=== PATIENT | female | born 1940 | race Caucasian/White ===

== ENCOUNTER → 2019-05-05 | Outpatient (CLI) | payer MEDICARE ==
[~2019-05-05] MED LIST: ADVA1AER2; COUM1TAB18; DARV100T
--- NOTE | 2019-05-06 06:50 | REP ---
TRIPLE PHASE BONE SCAN OF HIPS: Following the intravenous administration of 22 mCi of technetium 99m MDP, the patient's hips are imaged in the flow phase in the anterior and posterior projections showing symmetrical blood flow. Immediate blood pool and two hour delayed images are performed in multiple projections. Photopenic prostheses are noted in the proximal femurs bilaterally. There is increased blood pooling and delayed uptake in the proximal left femur along the interface between the prosthesis and bone. This is seen diffusely both medially and laterally along the stem of the prosthesis. Superior extent is at the intertrochanteric region. This is suspicious for loosening. Electronically Signed by Nikhil Poe MD 05/08/2019 04:15 P
== END ==
LOC: M RAD 10:56
PROVIDERS: ATTEND Orthopaedic Surgery
DX: S70.02XD Contusion of left hip, subsequent encounter (principal); W18.30XD Fall on same level, unspecified, subsequent encounter; Y92.009 Unspecified place in unspecified non-institutional (private) residence as the place of occurrence of the external cause
CPT/HCPCS: 78315; A9503

== ENCOUNTER → 2019-06-26 | Outpatient (CLI) | payer MEDICARE ==
[~2019-06-26] MED LIST changes: +AMOX500C PO; +FURO20TA2 PO; +LISI-1046 PO; +METF500T13 PO; +PRESCAP PO; +TRAM50TA2 PO
[2019-06-26 12:22] LABS: HEMATOCRIT 41.2 % (36.0-47.0); HEMOGLOBIN 12.8 g/dl (12.0-15.5); MEAN CORPUSCULAR HEMOGLOBIN 26.2 pg (27.0-33.0); MEAN CORPUSCULAR HGB CONC 31.1 g/dl (32.0-36.5); MEAN CORPUSCULAR VOLUME 84.4 fl (80.0-96.0); PLATELET COUNT, AUTOMATED 216 10^3/uL (150-450); RED BLOOD COUNT 4.88 10^6/uL (4.00-5.40); WHITE BLOOD COUNT 11.7 10^3/uL (4.0-10.0)
[2019-06-26 12:38] LABS: INR 1.22; PROTHROMBIN TIME 15.1 SECONDS (11.8-14.0)
[2019-06-26 12:45] LABS: ALBUMIN 3.9 GM/DL (3.2-5.2); ALT/SGPT 15 U/L (12-78); BILIRUBIN,TOTAL 0.6 MG/DL (0.2-1.0); BLOOD UREA NITROGEN 12 MG/DL (7-18); CALCIUM LEVEL 9.6 MG/DL (8.8-10.2); CARBON DIOXIDE LEVEL 31 MEQ/L (21-32); CHLORIDE LEVEL 105 MEQ/L (98-107); GLOMERULAR FILTRATION RATE > 60.0 (>32); GLUCOSE, FASTING 89 MG/DL (70-100); POTASSIUM SERUM 4.2 MEQ/L (3.5-5.1); SODIUM LEVEL 143 MEQ/L (136-145); TOTAL PROTEIN 6.7 GM/DL (6.4-8.2)
[2019-06-26 13:11] LABS: ERYTHROCYTE SEDIMENTATION RATE 16 mm/hr (0-30)
--- NOTE | 2019-06-26 20:55 | ECGEPIP ---
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
--- NOTE | 2019-06-27 02:31 | REP ---
Clinical: Preoperative assessment. Technique: PA and lateral. Comparison: 04/09/2008. Findings: Mediastinum and cardiac silhouette are within normal limits. Lung mcelroy demonstrate chronic stable changes including calcified granulomata. No focal consolidation, effusion, or pneumothorax. Skeletal structures demonstrate age-related osteopenia and degenerative changes. Impression: Chronic stable changes. No acute cardiopulmonary process. Electronically Signed by Jean Carlos Brito MD 06/27/2019 02:23 A
== END ==
LOC: M LAB 11:03
PROVIDERS: ATTEND Orthopaedic Surgery
DX: M25.552 Pain in left hip (principal); Z79.01 Long term (current) use of anticoagulants

== ENCOUNTER 2019-07-02 19:15 | Inpatient (IN) | payer MEDICARE ==
[~2019-07-02] VITALS: Ht 167.6 cm; Wt 74.3 kg
--- NOTE | 2019-07-02 20:07 | REPVR ---
PROCEDURE INFORMATION: Exam: CT Head Without Contrast Exam date and time: 07/02/2019 7:29 PM Age: 79 years old Clinical indication: Syncope and collapse TECHNIQUE: Imaging protocol: Computed tomography of the head without contrast. Axial and coronal reformatted images were created and reviewed. Radiation optimization: All CT scans at this facility use at least one of these dose optimization techniques: automated exposure control; mA and/or kV adjustment per patient size (includes targeted exams where dose is matched to clinical indication); or iterative reconstruction. COMPARISON: No relevant prior studies available. FINDINGS: Brain: Patchy areas of hypoattenuation in the periventricular and subcortical white matter, consistent with chronic small vessel ischemic disease. No CT evidence of acute intracranial hemorrhage or acute territorial infarction. No significant mass effect or midline shift. Basal cisterns patent. Ventricles: Prominence of the cortical sulci, cisterns and ventricular system, consistent with cerebral and cerebellar volume loss. Bones/joints: No acute osseous abnormality. Sinuses: Minimal ethmoid mucosal thickening. Mastoid air cells: Partial opacification of the left mastoid air cells. Soft tissues: Grossly unremarkable. Vasculature: Calcific atherosclerotic disease in the cavernous internal carotid arteries. IMPRESSION: 1. No CT evidence of acute intracranial pathology. 2. Additional findings, as above. Electronically signed by: Omid Castano On 07/02/2019 20:07:03 PM
--- NOTE | 2019-07-02 20:13 | REPVR ---
PROCEDURE INFORMATION: Exam: CT Cervical Spine Without Contrast Exam date and time: 07/02/2019 7:29 PM Age: 79 years old Clinical indication: Other: Syncope TECHNIQUE: Imaging protocol: Computed tomography images of the cervical spine without contrast. Axial, coronal and sagittal reformatted images were created and reviewed. Radiation optimization: All CT scans at this facility use at least one of these dose optimization techniques: automated exposure control; mA and/or kV adjustment per patient size (includes targeted exams where dose is matched to clinical indication); or iterative reconstruction. COMPARISON: No relevant prior studies available. FINDINGS: Vertebrae: Osteopenia. Mild straightening of the normal cervical lordosis. Mild retrolisthesis of C4 on C5 and anterolisthesis of C7 on T1. Alignment otherwise anatomic. Congenital nonunion of the C1 posterior arch. No CT evidence of acute fracture, dislocation or subluxation. Vertebral body heights maintained. Discs/Spinal canal/Neural foramina: Multilevel degenerative changes, characterized by disc space narrowing, osteophytosis and uncovertebral and facet joint hypertrophy. Multilevel spinal canal and neural foraminal narrowing. Thyroid gland: 2.8 x 1.5 cm heterogeneous retrosternal nodule. Soft tissues: Grossly unremarkable. Lungs: Emphysema. IMPRESSION: 1. No CT evidence of acute cervical spine traumatic injury. 2. 2.8 x 1.5 cm heterogeneous retrosternal nodule. If clinically indicated, thyroid ultrasound may be obtained for further evaluation. 3. Additional findings, as above. Electronically signed by: Omid Castano On 07/02/2019 20:13:22 PM
[2019-07-02] MEDS ORDERED: METOCLOPRAMIDE INJ 10MG/2ML VIAL (J2765) IV ONE (20:30)
[2019-07-02] MEDS ORDERED: MORPHINE 2 MG/ML 1ML VIAL (J2270) IV ONE (20:30)
[2019-07-02 20:34] LABS: BASO # 0.1 10^3/uL (0.0-0.2); BASO % 0.4 % (0.0-1.0); EOS # 0.2 10^3/uL (0.0-0.5); EOS % 1.8 % (0.0-3.0); HEMATOCRIT 42.5 % (36.0-47.0); HEMOGLOBIN 12.8 g/dl (12.0-15.5); LYMPH # 2.2 10^3/uL (1.5-5.0); LYMPH % 16.6 % (24.0-44.0); MEAN CORPUSCULAR HEMOGLOBIN 25.8 pg (27.0-33.0); MEAN CORPUSCULAR HGB CONC 30.1 g/dl (32.0-36.5); MEAN CORPUSCULAR VOLUME 85.5 fl (80.0-96.0); MONO # 0.9 10^3/uL (0.0-0.8); MONO % 6.9 % (0.0-5.0); NEUTROPHILS # 9.6 10^3/uL (1.5-8.5); NEUTROPHILS % 73.8 % (36.0-66.0); PLATELET COUNT, AUTOMATED 243 10^3/uL (150-450); RED BLOOD COUNT 4.97 10^6/uL (4.00-5.40)
[2019-07-02 20:44] LABS: INR 1.19; PROTHROMBIN TIME 14.8 SECONDS (11.8-14.0)
[2019-07-02] MEDS ORDERED: LIDOCAINE 5% (LIDODERM) PATCH TD SCH (21:00)
[2019-07-02] MEDS ORDERED: HumaLOG INSULIN (NovoLOG) PER UNIT SC SCH (21:00)
[2019-07-02 21:05] LABS: BLOOD UREA NITROGEN 10 MG/DL (7-18); CALCIUM LEVEL 8.9 MG/DL (8.8-10.2); CARBON DIOXIDE LEVEL 29 MEQ/L (21-32); CHLORIDE LEVEL 109 MEQ/L (98-107); CK-MB VALUE MASS < 1.0 NG/ML (<3.6); CPK CREATINE PHOSPHOKINASE 33 U/L (26-192); CREATININE FOR GFR 0.54 MG/DL (0.55-1.30); GLOMERULAR FILTRATION RATE > 60.0 (>32); GLUCOSE, FASTING 107 MG/DL (70-100); MB/CK RELATIVE INDEX 3.03 (< OR =4); POTASSIUM SERUM 4.2 MEQ/L (3.5-5.1); SODIUM LEVEL 143 MEQ/L (136-145); TROPONIN I < 0.02 NG/ML (< 0.10)
[2019-07-02] MEDS ORDERED: NS 1,000 ML IV SCH (21:54)
[2019-07-02] MEDS ORDERED: MOM 30ML SUSPENSION UDC PO PRN (22:00)
[2019-07-02] MEDS ORDERED: MAALOX 30 ML SUSP *UDC PO PRN (22:00)
[2019-07-02] MEDS ORDERED: DICL1GEL3 TOP (22:29)
--- NOTE | 2019-07-02 22:32 | HPEPDOC ---
[facility] Medical History & Physical Date of Admission Jul 02, 2019 Date of Service: Jul 02, 2019 Primary Care Physician: A Other Provider Asim Macias Attending Physician: MINERVA PEARCE MD History and Physical TIME OF SERVICE: 10 PM CHIEF COMPLAINT: Loss of consciousness HISTORY OF PRESENT ILLNESS: This is an 79 yr old F who presents for evaluation after fall and losing consciousness while walking down a ramp her building at around 5 PM. At her baseline she uses a cane or walker. While walking down the ramp, she had her cane and was holding onto the handrail. She denies having chest pain, shortness of breath, palpitations, or dizziness prior to the fall. She also denies having nausea, vomiting, fevers or chills or missing lunch. She doesn't remember specific events surrounding the fall. It is unclear if the event was witnessed. She has been having chronic left hip pain since and is scheduled for elective left hip revision on July 12. REVIEW OF SYSTEMS: 12 point review of systems negative except as listed in HPI PAST MEDICAL/ SURGICAL HISTORY: COPD PVD NIDDM Psoriasis Osteopenia Sleep Apnea Chronic small vessel ischemic disease Status post left total hip replacement to manage advanced OA. Status post total abdominal hysterectomy She denies having a heart attack in the past SOCIAL HISTORY: Former smoker She lives on her own FAMILY HISTORY: Prostate CA DM Lung CA ALLERGIES: Please see below. HOME MEDICATIONS: Please see below. PHYSICAL EXAMINATION: VITAL SIGNS: Please see below. GEN: well-nourished / well developed/ NAD INTEGUMENT: not flushed/ not jaundice / she has a well-healed post surgical scar on her knee HEENT: NCAT / mucus membranes moist and pink / nasal cannula in place CVS: RRR/NMRG/ the whole left lower leg is swollen when compared to the right LUNGS: lungs are clear to auscultation bilaterally on room air ABDOMEN: Contour (flat) / soft & not tender with palpation MSK/EXTREMITIES: range of motion intact in all upper extremities and right lower extremity, range of motion limited in left hip by pain/negative JEANNIE sign at the right hip, unable to complete JEANNIE test at the left hip because of pain NEURO: CN 2-12 are grossly intact / speech is not dysarthric PSYCH: alert and oriented to person place and time/ able to understand and follow all commands LABORATORY DATA: See below. IMAGING: CT head " IMPRESSION: 1. No CT evidence of acute intracranial pathology. 2. Additional findings, as above. " CT cervical spine " IMPRESSION: 1. No CT evidence of acute cervical spine traumatic injury. 2. 2.8 x 1.5 cm heterogeneous retrosternal nodule. If clinically indicated, thyroid ultrasound may be obtained for further evaluation. 3. Additional findings, as above." ASSESSMENT: Ms. Valadez is a 79-year-old female the past medical history of COPD, NIDDM, PVD, psoriasis, osteopenia, chronic small vessel ischemic disease and sleep apnea who is admitted for evaluation of syncopal fall. PLAN: 1. Syncope The cause is unclear at this time. [place]aney Syncope Risk Score to determine 30 day risk of serious adverse events in patients w syncope = 2 points = medium risk = additional investigation for cardiac and non-cardiac causes is appropriate The CT of the head, EKG, troponin were unremarkable Plan: bed to medical floor/Telemetry / f/u orthostats ( lying flat and sitting up) / f/u VBG to r/o hypercarbia 2. Left Hip pain and swelling Likely due to OA. I'm unable to complete the JEANNIE test on the left hip because of pain She has elective hip repair scheduled on July 12. Plan: follow-up x-ray of left hip prior to deciding if she needs a CT scan / bec ause the whole left leg is a lot more swollen than the right will f/u ultrasound to rule out DVT / continue with tramadol for pain, add lidocaine patch & voltaren gel (for discharge) 3. Uncontrolled HTN Plan: resume lasix and lisinopril 4. Leukocytosis Likely reactive due to fall Plan: monitor vitals / will not order UA bc she is not c/o abdominal pain 5. Thyroid Nodule Plan: thyroid ultrasound can be done on an outpatient basis 6. COPD Stable Plan: supplemental O2, albuterol PRN 7. NIDDM Plan: diabetic diet / f/u accuchecks & A1C / hypoglycemia protocol / sliding scale insulin / hold oral anti-glycemics 8. Sleep Apnea - Plan: own CPAP DVT PROPHYLAXIS: SCDs pending ruling out fracture DISPOSITION: She will need at least 2 midnight's stay Vital Signs Vital Signs Date Time Temp Pulse Resp B/P (MAP) Pulse Ox O2 Delivery O2 Flow Rate FiO2 07/02/19 22:00 98.2 67 18 144/67 (92) 99 Nasal Cannula 2.0 Laboratory Data Labs 24H Laboratory Tests 2 07/02/19 20:21: Bedside Glucose (Misc Panel) 108 07/02/19 20:25: Immature Granulocyte % (Auto) 0.5, Neutrophils (%) (Auto) 73.8H, Lymphocytes (%) (Auto) 16.6L, Monocytes (%) (Auto) 6.9H, Eosinophils (%) (Auto) 1.8, Basophils (%) (Auto) 0.4, Neutrophils # (Auto) 9.6H, Lymphocytes # (Auto) 2.2, Monocytes # (Auto) 0.9H, Eosinophils # (Auto) 0.2, Basophils # (Auto) 0.1, Nucleated Red Blood Cells % (auto) 0.0, Prothrombin Time 14.8H, Prothromb Time International Ratio 1.19, Anion Gap 5L, Glomerular Filtration Rate > 60.0, Calcium Level 8.9, Total Creatine Kinase 33, Creatine Kinase MB < 1.0, Creatine Kinase MB Relative Index 3.03, Troponin I < 0.02, Thyroid Stimulating Hormone (TSH) 1.380 CBC/BMP Laboratory Tests 07/02/19 20:25 Home Medications Scheduled Furosemide (Furosemide) 20 Mg Tablet, 20 MG PO DAILY Lisinopril (Lisinopril) 2.5 Mg Tablet, 2.5 MG PO DAILY Metformin HCl (Metformin HCl) 500 Mg Tablet, 500 MG PO BID Vit A/Vit C/Vit E/Zinc/Copper (Preservision Areds Softgel) 1 Each Capsule, 1 CAP PO BID Scheduled PRN Diclofenac Sodium (Diclofenac Sodium) 1% 100GM Gel..gram., 4 GM TOP QID PRN for hip pain Apply to area of pain Tramadol HCl (Tramadol HCl) 50 Mg Tablet, 50 MG PO Q6-8HP PRN for PAIN Allergies Coded Allergies: Aminoglycosides (Verified Allergy, Intermediate, 06/27/19) bacitracin (Verified Allergy, Intermediate, 06/27/19) latex (Verified Allergy, Intermediate, ITCH, 06/27/19) neomycin (Verified Allergy, Unknown, 06/27/19) polymyxin B (Verified Allergy, Unknown, 06/27/19) A-FIB/CHADSVASC A-FIB History Current/History of A-Fib/PAF?: No Current PO Anticoag Therapy: No MINERVA PEARCE MD Jul 02, 2019 22:32
[2019-07-02] MEDS ORDERED: GLUCOSE 4 GM CHEW TABLET PO PRN (22:45)
[2019-07-02] MEDS ORDERED: DEXTROSE 50% 50 ML SYRINGE IV PRN (22:45)
[2019-07-02] MEDS ORDERED: GLUCAGON FOR INJ 1 MG VIAL (J1610) SC PRN (22:45)
[2019-07-02 23:14] LABS: HEMOGLOBIN A1c 6.3 %
[2019-07-02 23:14] LABS: VENOUS BASE EXCESS 2.2 (-2.0-2.0); VENOUS HCO3 28.5 MEQ/L (23.0-27.0); VENOUS O2 SATURATION 93.8 % (60.0-80.0); VENOUS PARTIAL PRESSURE O2 72.2 mmHg (30.0-50.0); VENOUS PH 7.357 UNITS (7.330-7.430); VENOUS STANDARD HCO3 26.3 MEQ/L; VENOUS TOTAL CO2 30.1 MEQ/L (24.0-28.0)
[2019-07-02 23:23] VITALS: BP 138/80
--- NOTE | 2019-07-02 23:37 | REPVR ---
PROCEDURE INFORMATION: Exam: US Duplex Left Lower Extremity Veins, Limited Exam date and time: 07/02/2019 11:17 PM Age: 79 years old Clinical indication: Edema, localized; Lower extremity, left; Additional info: Left leg swelling TECHNIQUE: Imaging protocol: Real-time Duplex ultrasound of the Left Lower Extremity with 2-D duran scale, color Doppler flow and spectral waveform analysis with image documentation. Limited exam focused on the left lower extremity veins. COMPARISON: No relevant prior studies available. FINDINGS: Left deep veins: Unremarkable. The common femoral, femoral and popliteal veins are patent without thrombus. Normal compressibility, augmentation response and Doppler waveforms. Left superficial veins: Unremarkable. Saphenofemoral junction is patent without thrombus. Soft tissues: Unremarkable. IMPRESSION: No sonographic evidence of deep vein thrombosis. Electronically signed by: Omid Castano On 07/02/2019 23:36:36 PM
[2019-07-03] MEDS: ACETAMINOPHEN TAB 650MG DOSE (2X325MG) PO PRN ×2 (05:02→09:07)
[2019-07-03 06:00] VITALS: BP 138/72
[2019-07-03] MEDS ORDERED: ENOXAPARIN 40 MG/0.4 ML SYRINGE (J1650) SC SCH (06:00)
--- NOTE | 2019-07-03 06:39 | ECGEPIP ---
[facility] - ED Test Date: 2019-07-02 Pat Name: GILBERTO KIRKLAND Department: Room: - Gender: Female Training Officer: LILLIANA : 1940 Requested By: DANYELLE VALADEZ Order Number: [id number] Reading MD: Deloris Johnson Measurements Intervals [place] Rate: 80 P: 68 CO: 155 QRS: 49 QRSD: 87 T: 65 QT: 355 QTc: 410 Interpretive Statements SINUS RHYTHM LOW QRS VOLTAGE LIMB LEADS NONSPECIFIC ST T WAVE CHANGES CW 06/26/19 RATE INCREASED Electronically Signed on 07-03-2019 6:39:28 EST by Deloris Johnson
[2019-07-03] MEDS ORDERED: HumaLOG INSULIN (NovoLOG) PER UNIT SC SCH (07:30)
--- NOTE | 2019-07-03 08:00 | REP ---
Clinical: Trauma. Fall. Technique: AP and cross-table lateral views of the left femur. Findings: The patient is noted to be status post left hip replacement. A fracture line is identified through the proximal femoral metadiaphysis which likely represents old injury although superimposed acute fracture cannot be excluded. No further acute fracture or injury identified. Impression: Presumed old fracture through the proximal femoral metadiaphysis related to prior trauma and left hip replacement. Clinical correlation is recommended. Electronically Signed by Jean Carlos Brito MD 07/03/2019 07:52 A
--- NOTE | 2019-07-03 08:02 | REP ---
Clinical: Trauma. Fall. Technique: Frontal view of the pelvis with neutral and cross-table lateral views of the left hip. Findings: Evidence for bilateral hip replacement. Underlying age-related osteopenia and degenerative changes are appreciated. There is a subtle fracture line through the residual proximal femoral metadiaphysis with surrounding periosteal reaction suggesting old injury. However, superimposed acute fracture cannot definitively be excluded. The femoral portion of the hip prosthesis rods through the fracture line and appears intact. Impression: Age-related degenerative changes and osteopenia. Changes related to the left proximal femur likely represent old injury and less likely superimposed acute fracture cannot be excluded. Electronically Signed by Jean Carlos Brito MD 07/03/2019 07:53 A
--- NOTE | 2019-07-03 08:05 | REP ---
Clinical: Fall . Comparison: 06/26/2019 . Technique: PA and lateral. Findings: The mediastinum and cardiac silhouette are normal. The lung mcelroy demonstrate chronic interstitial changes without acute consolidation, effusion, or pneumothorax. Stable calcified granuloma in the left lower lung zone again noted. The skeletal structures are intact and normal. Impression: 1. No acute cardiopulmonary process. Electronically Signed by Jean Carlos Brito MD 07/03/2019 07:56 A
--- NOTE | 2019-07-03 08:15 | REP ---
Clinical: Trauma. Technique: AP, lateral, bilateral oblique views of the left ankle. Findings: Moderate diffuse soft tissue swelling along with age-related arthritic degenerative changes. A very subtle nondisplaced fracture of the distal fibular metaphysis cannot be excluded and identified on single oblique view. Impression: Soft tissue swelling and degenerative changes. Possible subtle nondisplaced fracture through the distal fibular metaphysis. Electronically Signed by Jean Carlos Brito MD 07/03/2019 08:07 A
--- NOTE | 2019-07-03 08:16 | REP ---
Clinical: Trauma. Technique: AP, lateral, bilateral oblique views of the left knee. Findings: Age-related tricompartmental arthritic changes are appreciated. No acute fracture or dislocation. No effusion. Impression: No acute fracture or dislocation. Electronically Signed by Jean Carlos Brito MD 07/03/2019 08:08 A
[2019-07-03 08:46] LABS: HEMATOCRIT 41.4 % (36.0-47.0); HEMOGLOBIN 12.6 g/dl (12.0-15.5); MEAN CORPUSCULAR HEMOGLOBIN 26.2 pg (27.0-33.0); MEAN CORPUSCULAR HGB CONC 30.4 g/dl (32.0-36.5); MEAN CORPUSCULAR VOLUME 86.1 fl (80.0-96.0); PLATELET COUNT, AUTOMATED 194 10^3/uL (150-450); RED BLOOD COUNT 4.81 10^6/uL (4.00-5.40); WHITE BLOOD COUNT 9.4 10^3/uL (4.0-10.0)
[2019-07-03 09:00] LABS: BLOOD UREA NITROGEN 8 MG/DL (7-18); CALCIUM LEVEL 9.2 MG/DL (8.8-10.2); CARBON DIOXIDE LEVEL 29 MEQ/L (21-32); CHLORIDE LEVEL 109 MEQ/L (98-107); CREATININE FOR GFR 0.52 MG/DL (0.55-1.30); GLOMERULAR FILTRATION RATE > 60.0 (>32); GLUCOSE, FASTING 93 MG/DL (70-100); POTASSIUM SERUM 4.2 MEQ/L (3.5-5.1); SODIUM LEVEL 143 MEQ/L (136-145)
[2019-07-03] MEDS ORDERED: DOCUSATE SODIUM 100 MG CAP PO SCH (09:00)
[2019-07-03] MEDS ORDERED: **NOTE PATIENT COMMENT** MISC XX SCH (09:00)
--- NOTE | 2019-07-03 09:07 | IPN ---
DATE: 07/03/2019 ADMISSION DATE: 07/02/2019 PRINCIPAL DIAGNOSIS: Syncope versus fall. HISTORY: Sindy Menendez was admitted yesterday when it was felt that she had lost consciousness while walking on a ramp into her building. She thinks her hip gave out. She has left hip replacement planned with [facility] Juan [facility], and she says "this happens all the time." Past medical history is reviewed from the history and physical. PHYSICAL EXAMINATION: Vital signs as listed, 138/78, pulse of 70. HEENT unremarkable. Lungs clear. Heart regular rhythm, 1/6 systolic ejection murmur. Abdomen soft, nontender, no masses. No peripheral edema. Labs are all pending today. IMPRESSION: 1. Fall. I do not think she actually had syncope. She says her hip gave out on her. I am waiting for lab work and will check her telemetry. She would like to go home today. I need to see her labs before we make that decision.
--- NOTE | 2019-07-19 13:05 | DSES ---
DATE OF ADMISSION: 07/02/2019 DATE OF DISCHARGE: 07/03/2019 PRINCIPAL DIAGNOSIS: Fall. HISTORY: Sindy Menendez slipped, fell, and went to the emergency room. There was thought she might have syncope, but she says that she slipped, and her hip gave out on her. She was planning to have left hip replacement, and she said this was a frequent occurrence for her. HOSPITAL COURSE: She was put on telemetry. She had no arrhythmia. She had laboratory work done, and there was nothing significant found. I only rounded her on the day of discharge. She insisted on going home. Said she was not quite clear why she was in the hospital, as she had slipped. Her imaging workup was all unremarkable. The patient was discharged home on 07/03/2019. Activity and diet as tolerated. Medicines were unchanged from admission: Furosemide 20 mg daily, lisinopril 2.5 mg daily, metformin 500 mg twice a day, tramadol 50 mg every 6-8 hours as needed, multivitamin, and she used Voltaren 1% Gel 4 grams four times a day as needed for hip pain while she was waiting for her surgery that took place the following week.
== END 2019-07-03 13:00 | disposition home or self-care (01) | DRG 93 ==
LOC: EDBD 19:15 → M ED 19:15 → M ED INP 21:54 → ENRESERV 22:56 → M MSPAV 23:35
PROVIDERS: ADMIT Internal Medicine; ATTEND Family Medicine
DX: R29.6 Repeated falls (principal); J44.9 Chronic obstructive pulmonary disease, unspecified; E11.51 Type 2 diabetes mellitus with diabetic peripheral angiopathy without gangrene; M25.552 Pain in left hip; L40.9 Psoriasis, unspecified; M85.80 Other specified disorders of bone density and structure, unspecified site; G47.30 Sleep apnea, unspecified; Z96.642 Presence of left artificial hip joint; Z87.891 Personal history of nicotine dependence; I10 Essential (primary) hypertension; D72.829 Elevated white blood cell count, unspecified; E04.1 Nontoxic single thyroid nodule; Z79.84 Long term (current) use of oral hypoglycemic drugs; Z79.899 Other long term (current) drug therapy; Z88.1 Allergy status to other antibiotic agents; Z88.8 Allergy status to other drugs, medicaments and biological substances; Z91.040 Latex allergy status

== ENCOUNTER 2019-07-12 05:32 | Inpatient (IN) | payer MEDICARE ==
--- NOTE | 2019-07-05 15:05 | HPE ---
DATE OF ADMISSION: 07/12/2019 CHIEF COMPLAINT: Left hip arthritis. HISTORY OF PRESENT ILLNESS: Sindy a pleasant 79-year-old female with progressively worsening prior left total hip arthroplasty. She has failed to improve with conservative treatment. She elected for surgery for her continued symptoms. She has pain with weightbearing activities and her activities of daily living. X-rays of her hip are notable for advanced polyethylene wear of the left hip prosthesis. She has consented for a left total hip arthroplasty revision by Dr. Juan Solano. Medical optimization was performed by Dr. Macias. ALLERGIES: NEOSPORIN and LATEX. CURRENT MEDICATIONS: - gemfibrozil 600 mg a day - furosemide 20 mg a day - metformin HCl 500 mg once a day - lisinopril 2.5 mg once a day - PreserVision once a day - tramadol 50 mg every 6 hours as needed PAST MEDICAL HISTORY: Diabetes, hypertension, hyperlipidemia, macular degeneration and depression. PAST SURGICAL HISTORY: Includes bilateral total hip arthroplasties and a hysterectomy. SOCIAL HISTORY: She is retired. She quit smoking 20 years ago and does not drink alcohol. FAMILY HISTORY: Noncontributory. REVIEW OF SYSTEMS: This patient denies chest pain, heart palpitations, cough, wheezing, difficulty breathing and shortness of breath. She denies abdominal pain, nausea, vomiting, diarrhea or constipation. She denies recent upper respiratory infection or urinary tract infection symptoms. She does complain of persistent pain in the left hip and pain with weightbearing activities in her left hip. PHYSICAL EXAMINATION: General: She is well-nourished, well-developed in no acute distress, alert female patient. She ambulates with a moderate limp favoring her left lower extremity. She is using a single-leg cane. Vital signs: She is 64 inches tall, weighs 155 pounds with a temperature of 98.3, pulse of 80, blood pressure 122/78 and respirations of 17. Neck was supple without adenopathy or jugular venous distension. Lungs were clear to auscultation without rales or wheeze. Heart with regular rate and rhythm. Abdomen: Bowel sounds were present. Extremities: Examination of the hip revealed intact skin. The patient had decreased internal and external rotation due to pain and stiffness. The limb is neurovascularly intact. LABORATORY DATA: Chest x-ray showed no acute cardiopulmonary disease processes. EKG showed sinus rhythm at 80 beats per minute. Protime was 15.1, INR 1.22, glucose 89, BUN 12, creatinine 0.60, sodium 143, potassium 4.2. CBC showed a white count of 11.7, MCH of 26.2, mean corpuscular hemoglobin concentration of 31.1, otherwise within normal limits with a sed rate of 16. IMPRESSION: Symptomatic polyethylene wear and a previous left total hip arthroplasty. PLAN: Consented for a left total hip arthroplasty revision by Dr. Juan Solano.
[2019-07-12] VITALS (9 sets, daily range): BP systolic 81–120; BP diastolic 46–94; O2SAT 98
[~2019-07-12] VITALS: Ht 165.1 cm; Wt 73.0 kg
[~2019-07-12 05:32] MED LIST changes: +DICL1GEL3 TOP
[2019-07-12] MEDS ORDERED: ACETAMINOPHEN 500 MG TAB PO ONE (06:00)
[2019-07-12] MEDS ORDERED: LR 1,000 ML IV SCH ×2 (06:00→12:00)
[2019-07-12] MEDS ORDERED: VANCOMYCIN HCL 1,000 MG, VIAL MATE ADAPTER 1 EACH in D5W 250 ML IV ONE (06:00)
[2019-07-12] MEDS ORDERED: ceFAZolin SOD 2 GM in IV 1 EA IV ONE (06:00)
[2019-07-12] MEDS ORDERED: LIDOCAINE 2% INJ 100 MG/5 ML SDV (FOR ANES.) As Ordered ONE (06:05)
[2019-07-12] MEDS ORDERED: BUPIVACAINE HCL 0.5% 30 ML VIAL As Ordered ONE (06:05)
[2019-07-12] MEDS ORDERED: propofoL 200 MG/20 ML VIAL As Ordered ONE ×3 (06:05→10:46)
[2019-07-12] MEDS ORDERED: fentaNYL 100 MCG/2 ML INJECTION (J3010) As Ordered ONE (06:15)
[2019-07-12] MEDS ORDERED: EPINEPHrine INJ 1 MG/ML 1ML VIAL As Ordered ONE (06:50)
[2019-07-12] MEDS ORDERED: ceFAZolin 1GM INJ (J0690 PER 500MG) As Ordered ONE (06:50)
[2019-07-12] MEDS ORDERED: ONDANSETRON 4MG/2ML VIAL (J2405) As Ordered ONE (07:01)
[2019-07-12] MEDS ORDERED: ROCURONIUM BROMIDE 50 MG/5 ML VIAL As Ordered ONE (07:01)
[2019-07-12] MEDS ORDERED: dexameTHASONE 4 MG/ML 1ML VIAL (J1100) As Ordered ONE (07:01)
[2019-07-12] MEDS ORDERED: ePHEDrine SULFATE 25 MG/5 ML(5MG/ML) SYRINGE As Ordered ONE (08:25)
[2019-07-12] MEDS ORDERED: VASOPRESSIN INJ 20 UNITS/ML VIAL As Ordered ONE (09:14)
[2019-07-12] MEDS ORDERED: VANCOMYCIN 1000 MG/20 ML VIAL (J3370) As Ordered ONE (09:17)
[2019-07-12] MEDS: fentaNYL 100 MCG/2 ML INJECTION (J3010) IV PRN ×3 (11:44→12:06)
[2019-07-12] MEDS ORDERED: ONDANSETRON 4MG/2ML VIAL (J2405) IV PRN ×2 (12:00)
[2019-07-12] MEDS ORDERED: MORPHINE 4 MG/ML 1ML VIAL/SYRINGE (J2270) IV PRN (12:00)
[2019-07-12] MEDS ORDERED: MORPHINE 2 MG/ML 1ML VIAL (J2270) IV PRN ×2 (12:00)
--- NOTE | 2019-07-12 12:24 | REP ---
Left femur: Four views portably obtained. History: Status post hip replacement. Findings: Four views of the left femur demonstrate a left hip arthroplasty in position. Lateral skin leon are noted. Periarticular soft tissue swelling and emphysema are seen. There is advanced diffuse osteopenia. There are metallic sutures about the proximal subtrochanteric portion of the femur. Impression: Status post revision arthroplasty left hip. Electronically Signed by Girish Pollack MD 07/12/2019 12:16 P
[2019-07-12] MEDS: LR 1,000 ML IV SCH (13:40)
[2019-07-12] MEDS: ceFAZolin SOD 2 GM in IV 1 EA IV SCH ×2 (13:45→20:17)
--- NOTE | 2019-07-12 17:55 | CR.PDOC ---
General Date of Consultation: Jul 12, 2019 Consultation REASON FOR CONSULTATION/CHIEF COMPLAINT: Status post left hip revision. HISTORY OF PRESENT ILLNESS: 79-year-old female with past medical history of hypertension and diabetes mellitus is admitted status post left hip arthroplasty revision. Procedure was done under spinal anesthesia, patient seen on the floor, tolerating diet, ambulated to the bathroom, reports mild to moderate hip discomfort, otherwise without complaints. She denies any shortness of breath, chest pain, nausea, vomiting, abdominal pain or diarrhea. 10 point review of system is negative except for above ALLERGIES: Please see below. HOME MEDICATIONS: Please see below. PAST MEDICAL HISTORY: 1. Hypertension. 2. . Diabetes mellitus. PAST SURGICAL HISTORY: 1. Total hip arthroplasty 2 2. , Hysterectomy FAMILY HISTORY: Both parents had lung cancer SOCIAL HISTORY: Previous smoker, quit 20 years ago, smoked 2 packs per day for over 20 years PHYSICAL EXAMINATION: VITAL SIGNS: Please see below. GENERAL: No distress HEENT: Normocephalic, atraumatic, moist mucous membranes NECK: Supple CARDIOVASCULAR EXAMINATION: S1, S2, no murmurs RESPIRATORY EXAMINATION: Clear to auscultation, no wheezing ABDOMINAL EXAMINATION: Soft, nontender, nondistended, hypoactive bowel sounds EXTREMITIES: Left lower extremity range of motion limited due to pain SKIN: No rash NEUROLOGICAL EXAMINATION: Alert and oriented 3, no focal deficits PSYCHIATRIC EXAMINATION: Calm and cooperative LABORATORY DATA: Please see below. ASSESSMENT/PLAN: 79-year-old female with past medical history of hypertension and diabetes mellitus is admitted post left hip arthroplasty revision. 1. Left hip arthroplasty revision. Management as per primary team 2. Diabetes mellitus. Sliding scale insulin coverage with meals and at bedtime 3. Hypertension. Continue home lisinopril DVT prophylaxis: Xarelto GI prophylaxis: Not needed Vital Signs/I&O Vital Signs Date Time Temp Pulse Resp B/P (MAP) Pulse Ox O2 Delivery O2 Flow Rate FiO2 07/12/19 17:00 97.8 84 17 101/50 (67) 88 Nasal Cannula 1.0 Laboratory Data Labs 24H Laboratory Tests 2 07/12/19 06:53: Bedside Glucose (Misc Panel) 92 Microbiology Microbiology 07/12/19 Gram Stain - Final, Resulted 07/12/19 Wound Culture, Resulted Pending 07/12/19 Anaerobic Culture, Resulted Pending Allergies Coded Allergies: Aminoglycosides (Verified Allergy, Intermediate, 06/27/19) bacitracin (Verified Allergy, Intermediate, 06/27/19) latex (Verified Allergy, Intermediate, ITCH, 06/27/19) neomycin (Verified Allergy, Unknown, 06/27/19) polymyxin B (Verified Allergy, Unknown, 06/27/19) Home Medications Scheduled Furosemide (Furosemide) 20 Mg Tablet, 20 MG PO DAILY, (Reported) Lisinopril (Lisinopril) 2.5 Mg Tablet, 2.5 MG PO DAILY, (Reported) Metformin HCl (Metformin HCl) 500 Mg Tablet, 500 MG PO BID, (Reported) Vit A/Vit C/Vit E/Zinc/Copper (Preservision Areds Softgel) 1 Each Capsule, 1 CAP PO BID, (Reported) Scheduled PRN Diclofenac Sodium (Diclofenac Sodium) 1% 100GM Gel..gram., 4 GM TOP QID PRN for hip pain for 15 Days, #1 Apply to area of pain Tramadol HCl (Tramadol HCl) 50 Mg Tablet, 50 MG PO Q6-8HP PRN for PAIN, (Report ed) VIKKI GALLEGOS MD Jul 12, 2019 17:55
[2019-07-12] MEDS ORDERED: GLUCAGON FOR INJ 1 MG VIAL (J1610) SC PRN (18:00)
[2019-07-12] MEDS ORDERED: GLUCOSE 4 GM CHEW TABLET PO PRN (18:00)
[2019-07-12] MEDS ORDERED: DEXTROSE 50% 50 ML SYRINGE IV PRN (18:00)
[2019-07-12] MEDS: OCUVITE 1 TAB PO SCH (20:17)
[2019-07-12] MEDS: PERCOCET 5MG/325MG TAB PO PRN (20:18)
[2019-07-12] MEDS: HumaLOG INSULIN (NovoLOG) PER UNIT SC SCH (21:00)
[2019-07-13] VITALS (8 sets, daily range): BP systolic 101–121; BP diastolic 45–72; O2SAT 93–98
[2019-07-13] MEDS: LR 1,000 ML IV SCH (00:44)
[2019-07-13] MEDS: ceFAZolin SOD 2 GM in IV 1 EA IV SCH (04:48)
[2019-07-13] MEDS: PERCOCET 5MG/325MG TAB PO PRN ×3 (04:48→18:05)
[2019-07-13] MEDS ORDERED: XARE10TA PO (06:28)
[2019-07-13] MEDS ORDERED: PERC5TAB12 PO (06:28)
[2019-07-13 07:23] LABS: HEMOGLOBIN 7.5 g/dl (12.0-15.5); MEAN CORPUSCULAR HEMOGLOBIN 26.6 pg (27.0-33.0); MEAN CORPUSCULAR HGB CONC 31.3 g/dl (32.0-36.5); MEAN CORPUSCULAR VOLUME 85.1 fl (80.0-96.0); PLATELET COUNT, AUTOMATED 255 10^3/uL (150-450); RED BLOOD COUNT 2.82 10^6/uL (4.00-5.40); WHITE BLOOD COUNT 10.2 10^3/uL (4.0-10.0)
[2019-07-13 07:51] LABS: ALBUMIN 2.4 GM/DL (3.2-5.2); ALT/SGPT 11 U/L (12-78); BILIRUBIN,TOTAL 0.5 MG/DL (0.2-1.0); BLOOD UREA NITROGEN 10 MG/DL (7-18); CALCIUM LEVEL 8.6 MG/DL (8.8-10.2); CARBON DIOXIDE LEVEL 33 MEQ/L (21-32); CHLORIDE LEVEL 106 MEQ/L (98-107); CREATININE FOR GFR 0.56 MG/DL (0.55-1.30); GLOMERULAR FILTRATION RATE > 60.0 (>32); GLUCOSE, FASTING 112 MG/DL (70-100); POTASSIUM SERUM 4.9 MEQ/L (3.5-5.1); SODIUM LEVEL 140 MEQ/L (136-145); TOTAL PROTEIN 4.8 GM/DL (6.4-8.2)
[2019-07-13] MEDS: HumaLOG INSULIN (NovoLOG) PER UNIT SC SCH ×4 (08:19→21:00)
[2019-07-13] MEDS: MIRALAX *UNIT DOSE* 17GM PACKET PO SCH (10:27)
[2019-07-13] MEDS: MOM 30ML SUSPENSION UDC PO SCH (10:27)
[2019-07-13] MEDS: OCUVITE 1 TAB PO SCH ×2 (10:27→20:03)
[2019-07-13] MEDS: LISINOPRIL *2.5 MG* TAB PO SCH (10:28)
--- NOTE | 2019-07-13 11:30 | RO ---
DATE OF OPERATION: 07/12/2019 PREOPERATIVE DIAGNOSIS: Loose cemented left total hip replacement with revision of a left total hip replacement. 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 PROCEDURES: Revision of a left total hip replacement revising the femoral stem and the acetabular liner and the femoral head. SURGEON: Smiley Solano MD CERTIFIED PHLEBOTOMY TECHNICIAN: Zak Ko MD, and Tesha Dodson PA-C ANESTHESIA: Spinal. PROSTHESIS REPLACED: 8-inch Solution stem size 18 mm in diameter with a 32-mm chromium ball with a +9 neck length and the acetabular liner was replaced with a 32-mm neutral +4 polyethylene liner. COMPLICATION: There was an intraoperative fracture of the proximal longitudinal split of proximal femur which required two cables to be placed. ESTIMATED BLOOD LOSS: 300 mL. SPECIMENS: 1. Aerobic and anaerobic cultures. 2. Synovium for frozen section. FINDINGS: The synovium showed rare neutrophils and no organisms. The femoral component was grossly loose. There was no evidence of any purulence. DESCRIPTION OF PROCEDURE: She was taken to the operating room where a successful spinal anesthetic was induced and placed in a lateral decubitus position. Using a [place]wood hip positioner, down leg well padded especially the peroneal nerve, and axillary roll was utilized. Her left hip area was carefully prepped and draped in the usual sterile fashion. 2 grams of Kefzol were given and then intraoperatively another gram of vancomycin was given. After appropriate time-out was performed, a longitudinal incision was made for a correct anterolateral approach to the hip. Bovie cautery was used to coagulate the crossing vessels down to the tensor fascia and was then divided in line with the skin incision. We split the gluteus medius anterior one-third, posterior two-third junction proximally and then carefully dissected down into the hip joint and then carefully distally dissecting the anterior tissues off the proximal femur as we externally rotated the hip. There was some polyethylene-type synovitis, but there was no purulence noted. Cultures were obtained at this point, and a biopsy of the synovium was obtained and sent for frozen section, which came back showing rare neutrophils and no organisms. We eventually were able to dislocate the hip anteriorly and remove the femoral head, and then we worked on getting the stem out. It was grossly loose, but the shoulder of the stem against the trochanter where there was some remaining cement was still there, which required us to chip away at the cement mantle on the trochanter, eventually allowing us to remove the stem. However, we did also have to slide a small thin flexible osteotome down the lateral aspect of the stem to disengage it from the cement mantle distally near the tip by the cement plug that we could see on the radiograph. Once that was free, the stem did come out fairly readily. A large portion of the cement came out with the stem, but the residual amount of small pieces of cement were carefully and meticulously extracted from the femur; and eventually, we were able to go down and visualize the bone plug. The bone plug was well fixed. She had a significant fibrous membrane around the femoral canal from the chronic looseness of her stem, but this was curetted out using the backbiting curettes and using rongeurs and pituitary rongeurs to remove all the fibrous membrane as much as possible. It is noteworthy that there was a corticol defect that was present actually on the anterior aspect of the proximal femur. It was about 1.5 cm in diameter. The cement on the trochanter was very well fixed and difficult for us to remove. Thus, we actually could not remove all of it; but as we were trying to chip away at it, there was a longitudinal split noted in the femur going down laterally; but it did not extend the entire way. So, we did eventually place two cables on the proximal femur to hold it in position. Then we turned our attention to removing the bone plug, and we used a small but long drill to make a hole in the bone plug and then a larger drill, and then eventually we were able to pass a backbiting-type extracting device and try to pull up on the bone plug to remove it, but it was well fixed. Thus, at this point, we felt it best to use the flexible reamer to chew away at the bone plug by passing a guide selena down through the bone plug and then carefully by hand increasing the diameter of the reamer to eventually chew the plastic cement restrictor and chew it loose from the femur; and that technique is what we did. It did not appear to have penetrated the femur. We were quite careful with that, but there is no recognized femoral penetration noted. Eventually, the entire bone plug was removed. We then began hand reaming with the solid reamers, advancing up eventually to a size 18; and that had reasonable cortical chatter. There was a pedestal noted on the x-rays right at where the cement restrictor was located; and thus, we had to spend some time to make sure that was reamed concentrically. We had some difficulty as we implanted the trial broaches where the shoulder of the stem was still hitting up against the remaining bone cement that was on the greater trochanter that we could not previously remove. Thus, we ended up using a bur to bur it down so it could allow the shoulder of the stem to pass. Prior to broaching, however, we did tighten the two cables that we had passed. We made sure they were passed right up against the bone and then tighten temporarily; and then we broached up to the size 18, and the 18-mm stem appeared to be the right size. Thus, at this point, we then turned our attention to the acetabulum. A synovectomy of the hip capsule and joint was then performed, removing the polyethylene synovitis. Once we had adequate exposure of the plastic liner, we used the extraction device to remove that and the wire. We copiously irrigated and then replaced the new liner, which is a 32, with a posterior lip. We were trying to duplicate what she had in previously. That was placed without difficulty with good fixation, verified by using a [place] elevator. At this point, we felt we were ready to implant the real stem. Throughout the operation, we copiously pulsatile lavage irrigated out the femoral canal several times, and then we did it once again. Made sure that all the fibrous membrane that was visible was removed, and then we placed the real 18-mm x 8-inch Solution stem. As we were implanting the stem, we did apply 30 mL of crushed cancellous frozen allograft bone graft to fill the void in her fairly cavernous femur. The stem had excellent purchase. The cables held nicely, and there was no obvious displacement of the femoral fracture that was seen previously; and thus, the cables were crimped and secured and then cut short. We then began a series of trial reductions. Began with a +5-mm neck length. She was very stable to flexion internal rotation. However, in extension and external rotation, she had some instability, and there was some access telescoping. Thus, we eventually trialed up to a 13-mm neck length, but that had the skirt; and because of the posterior lip, there was some anterior instability present. Thus, we elected to change out the lipped liner, and we removed that; and then we placed the neutral liner with a +4 polyethylene and then decrease our neck length to the 9-mm head which did not have the skirt; and this provided excellent stability to her hip in extension and external rotation and had minimal soft tissue telescoping. Thus, we thought this would be the appropriate size to use. Thus, again we copiously irrigated out the acetabulum and then placed the real neutral +4 polyethylene and then made sure it was nice and secure and then placed the real 9-mm ball on the trunnion after drying it. We reduced the hip, and again she was quite stable to flexion internal rotation and extension external rotation. There was minimal soft tissue telescoping at this point. The stem was very stable. We then irrigated again, then began meticulously closing the vastus lateralis and the gluteus medius and minimus tissue back anatomically to the trochanter using interrupted #1 polydioxanone suture (PDS) sutures, irrigating between layers, then we closed the tensor fascia with a combination of #1 PDS sutures and a running #1 Stratafix, irrigated again between layers, closed the deep subdermal tissues with interrupted 2-0 PDS sutures. The skin was closed with leon, covered by an Optifoam dry sterile bulky dressing. She was then turned supine and then transferred to the recovery room in stable condition. Dr. Zak Ko was critical to the success of this extremely difficult surgery by helping with appropriate soft tissue retraction, manipulating the leg as needed, helped to secure the femur fracture with the cables, helped to place the implant, remove the polyethylene, helped provide the synovectomy, among many other tasks, to allow me to perform the operation smoothly, efficiently, and safely. Rufina Dodson also was critical with her help, as well, with additional assistance with soft tissue retraction and manipulation of the leg as needed and helped to close the wound, and also helped to prepare the patient.
[2019-07-13 14:20] LABS: HEMATOCRIT 26.9 % (36.0-47.0); HEMOGLOBIN 8.5 g/dl (12.0-15.5)
[2019-07-13] MEDS: RIVAROXABAN 10 MG TAB (XARELTO) PO SCH (18:04)
[2019-07-14] MEDS: PERCOCET 5MG/325MG TAB PO PRN ×2 (00:56→17:58)
[2019-07-14 06:06] VITALS: BP 115/53
[2019-07-14] MEDS: ACETAMINOPHEN TAB 650MG DOSE (2X325MG) PO PRN ×2 (06:23→20:45)
[2019-07-14] MEDS: HumaLOG INSULIN (NovoLOG) PER UNIT SC SCH ×4 (07:30→20:34)
[2019-07-14] MEDS: OCUVITE 1 TAB PO SCH ×2 (08:51→21:55)
[2019-07-14] MEDS: MIRALAX *UNIT DOSE* 17GM PACKET PO SCH (08:52)
[2019-07-14] MEDS: MOM 30ML SUSPENSION UDC PO SCH (08:52)
[2019-07-14] MEDS: LISINOPRIL *2.5 MG* TAB PO SCH (08:52)
[2019-07-14 08:55] LABS: HEMATOCRIT 28.1 % (36.0-47.0); HEMOGLOBIN 8.7 g/dl (12.0-15.5); MEAN CORPUSCULAR HEMOGLOBIN 26.6 pg (27.0-33.0); MEAN CORPUSCULAR VOLUME 85.9 fl (80.0-96.0); PLATELET COUNT, AUTOMATED 335 10^3/uL (150-450); RED BLOOD COUNT 3.27 10^6/uL (4.00-5.40); WHITE BLOOD COUNT 17.2 10^3/uL (4.0-10.0)
[2019-07-14 12:11] LABS: ALBUMIN 2.8 GM/DL (3.2-5.2); ALT/SGPT 14 U/L (12-78); BILIRUBIN,TOTAL 0.6 MG/DL (0.2-1.0); BLOOD UREA NITROGEN 11 MG/DL (7-18); CALCIUM LEVEL 8.2 MG/DL (8.8-10.2); CARBON DIOXIDE LEVEL 34 MEQ/L (21-32); CHLORIDE LEVEL 107 MEQ/L (98-107); CREATININE FOR GFR 0.58 MG/DL (0.55-1.30); GLOMERULAR FILTRATION RATE > 60.0 (>32); GLUCOSE, FASTING 119 MG/DL (70-100); POTASSIUM SERUM 4.2 MEQ/L (3.5-5.1); SODIUM LEVEL 142 MEQ/L (136-145); TOTAL PROTEIN 6.1 GM/DL (6.4-8.2)
[2019-07-14 14:30] VITALS: BP 125/58
[2019-07-14] MEDS: RIVAROXABAN 10 MG TAB (XARELTO) PO SCH (17:58)
[2019-07-14 21:00] VITALS: O2SAT 90
[2019-07-14 22:00] VITALS: BP 110/47
[2019-07-15 06:00] VITALS: BP 115/50
[2019-07-15] MEDS: HumaLOG INSULIN (NovoLOG) PER UNIT SC SCH ×4 (07:30→20:09)
[2019-07-15 08:14] LABS: HEMATOCRIT 22.1 % (36.0-47.0); MEAN CORPUSCULAR HEMOGLOBIN 26.5 pg (27.0-33.0); MEAN CORPUSCULAR HGB CONC 30.8 g/dl (32.0-36.5); RED BLOOD COUNT 2.57 10^6/uL (4.00-5.40)
[2019-07-15 08:23] LABS: ALBUMIN 2.3 GM/DL (3.2-5.2); ALT/SGPT 20 U/L (12-78); BILIRUBIN,TOTAL 0.6 MG/DL (0.2-1.0); BLOOD UREA NITROGEN 12 MG/DL (7-18); CALCIUM LEVEL 7.9 MG/DL (8.8-10.2); CARBON DIOXIDE LEVEL 34 MEQ/L (21-32); CHLORIDE LEVEL 105 MEQ/L (98-107); CREATININE FOR GFR 0.42 MG/DL (0.55-1.30); GLOMERULAR FILTRATION RATE > 60.0 (>32); GLUCOSE, FASTING 114 MG/DL (70-100); POTASSIUM SERUM 4.5 MEQ/L (3.5-5.1); SODIUM LEVEL 141 MEQ/L (136-145); TOTAL PROTEIN 4.6 GM/DL (6.4-8.2)
[2019-07-15 08:58] LABS: HEMOGLOBIN 6.8 g/dl (12.0-15.5); PLATELET COUNT, AUTOMATED 224 10^3/uL (150-450)
[2019-07-15] MEDS: MIRALAX *UNIT DOSE* 17GM PACKET PO SCH (09:00)
[2019-07-15] MEDS: OCUVITE 1 TAB PO SCH ×2 (09:03→20:05)
[2019-07-15] MEDS: MOM 30ML SUSPENSION UDC PO SCH (09:03)
[2019-07-15] MEDS: LISINOPRIL *2.5 MG* TAB PO SCH (09:27)
[2019-07-15] MEDS: PERCOCET 5MG/325MG TAB PO PRN (12:19)
[2019-07-15 13:01] VITALS: BP 112/49
[2019-07-15 13:17] VITALS: BP 114/50
[2019-07-15 14:19] VITALS: BP 109/50
[2019-07-15 15:00] VITALS: BP 106/50
[2019-07-15] MEDS: RIVAROXABAN 10 MG TAB (XARELTO) PO SCH (17:04)
--- NOTE | 2019-07-15 18:20 | IPNPDOC ---
Date Seen The patient was seen on 07/15/19. Progress Note HISTORY OF PRESENT ILLNESS: 79-year-old female with past medical history of hypertension and diabetes mellitus is admitted status post left hip arthroplasty revision. Procedure was done under spinal anesthesia, patient seen on the floor, tolerating diet, ambulated to the bathroom, reports mild to moderate hip discomfort, otherwise without complaints. She denies any shortness of breath, chest pain, nausea, vomiting, abdominal pain or diarrhea. 07/15/19 Patient's hemoglobin 6.8 today, reports dizziness when ambulating to the bathroom with sensation of, no other complaints. She continues to have left hip pain, reasonably controlled, denies chest pain, nausea, vomiting, abdominal pain or diarrhea. Patient reports shortness of breath with exertion. 10 point review of system is negative except for above PHYSICAL EXAMINATION: VITAL SIGNS: Please see below. GENERAL: No distress HEENT: Normocephalic, atraumatic, moist mucous membranes NECK: Supple CARDIOVASCULAR EXAMINATION: S1, S2, no murmurs RESPIRATORY EXAMINATION: Clear to auscultation, no wheezing ABDOMINAL EXAMINATION: Soft, nontender, nondistended, positive bowel sounds EXTREMITIES: Left lower extremity range of motion limited due to pain, moderate tenderness to palpation over surgical site SKIN: No rash NEUROLOGICAL EXAMINATION: Alert and oriented 3, no focal deficits PSYCHIATRIC EXAMINATION: Calm and cooperative LABORATORY DATA: Please see below. ASSESSMENT/PLAN: 79-year-old female with past medical history of hypertension and diabetes mellitus is admitted post left hip arthroplasty revision. 1. Left hip arthroplasty revision. Management as per primary team, on Xarelto for DVT prophylaxis. 2. Acute Anemia. Likely due to intraoperative blood loss along with some factor of hemodilution from IV fluids, patient symptomatic with dizziness and shortness of breath, we'll transfuse 1 unit of packed cells today. 3. Diabetes mellitus. Sliding scale insulin coverage with meals and at bedtime 4. Hypertension. Continue home lisinopril DVT prophylaxis: Xarelto GI prophylaxis: Not needed VS, I&O, 24H, Fishbone Vital Signs/I&O Vital Signs Date Time Temp Pulse Resp B/P (MAP) Pulse Ox O2 Delivery O2 Flow Rate FiO2 07/15/19 15:00 98.1 78 18 106/50 95 Room Air 07/14/19 07:45 1.0 I&O- Last 24 Hours up to 6 AM 07/15/19 06:00 Intake Total 1080 ml Output Total 0 ml Balance 1080 ml Laboratory Data 24H LABS Laboratory Tests 2 07/14/19 19:51: Bedside Glucose (Misc Panel) 115H 07/15/19 07:17: Nucleated Red Blood Cells % (auto) 0.2H, Anion Gap 2L, Glomerular Filtration Rate > 60.0, Calcium Level 7.9L, Total Bilirubin 0.6, Aspartate Amino Transf (AST/SGOT) 23, Alanine Aminotransferase (ALT/SGPT) 20, Alkaline Phosphatase 99, Total Protein 4.6#L, Albumin 2.3L, Albumin/Globulin Ratio 1.00 07/15/19 11:34: Bedside Glucose (Misc Panel) 139H 07/15/19 16:30: Bedside Glucose (Misc Panel) 142H CBC/BMP Laboratory Tests 07/15/19 07:17 Microbiology Microbiology 07/12/19 Gram Stain - Final, Complete 07/12/19 Wound Culture - Final, Complete 07/12/19 Anaerobic Culture - Final, Complete VIKKI GALLEGOS MD Jul 15, 2019 18:20
[2019-07-15] MEDS: ACETAMINOPHEN TAB 650MG DOSE (2X325MG) PO PRN (20:05)
[2019-07-15 22:00] VITALS: BP 119/53
[2019-07-16] MEDS: ACETAMINOPHEN TAB 650MG DOSE (2X325MG) PO PRN ×2 (05:40→20:38)
[2019-07-16 06:00] VITALS: BP 139/59
[2019-07-16] MEDS: HumaLOG INSULIN (NovoLOG) PER UNIT SC SCH ×4 (07:30→20:38)
[2019-07-16 07:34] LABS: MEAN CORPUSCULAR HEMOGLOBIN 28.3 pg (27.0-33.0); MEAN CORPUSCULAR HGB CONC 32.5 g/dl (32.0-36.5); PLATELET COUNT, AUTOMATED 268 10^3/uL (150-450); RED BLOOD COUNT 3.22 10^6/uL (4.00-5.40)
[2019-07-16 07:44] LABS: HEMOGLOBIN 9.1 g/dl (12.0-15.5)
[2019-07-16 08:13] LABS: ALBUMIN 2.3 GM/DL (3.2-5.2); ALT/SGPT 31 U/L (12-78); BILIRUBIN,TOTAL 1.1 MG/DL (0.2-1.0); BLOOD UREA NITROGEN 10 MG/DL (7-18); CALCIUM LEVEL 8.1 MG/DL (8.8-10.2); CARBON DIOXIDE LEVEL 30 MEQ/L (21-32); CHLORIDE LEVEL 106 MEQ/L (98-107); CREATININE FOR GFR 0.47 MG/DL (0.55-1.30); GLOMERULAR FILTRATION RATE > 60.0 (>32); GLUCOSE, FASTING 111 MG/DL (70-100); POTASSIUM SERUM 3.9 MEQ/L (3.5-5.1); SODIUM LEVEL 140 MEQ/L (136-145); TOTAL PROTEIN 5.7 GM/DL (6.4-8.2)
[2019-07-16] MEDS: PERCOCET 5MG/325MG TAB PO PRN (08:19)
[2019-07-16] MEDS: LISINOPRIL *2.5 MG* TAB PO SCH (08:19)
[2019-07-16] MEDS: MIRALAX *UNIT DOSE* 17GM PACKET PO SCH (08:19)
[2019-07-16] MEDS: MOM 30ML SUSPENSION UDC PO SCH (08:19)
[2019-07-16] MEDS: OCUVITE 1 TAB PO SCH ×2 (08:19→20:38)
[2019-07-16 10:15] VITALS: O2SAT 92
[2019-07-16 11:30] VITALS: O2SAT 95
[2019-07-16 13:22] VITALS: BP 120/56
[2019-07-16] MEDS: RIVAROXABAN 10 MG TAB (XARELTO) PO SCH (18:01)
[2019-07-16 21:00] VITALS: O2SAT 96
[2019-07-16 22:00] VITALS: BP 113/51
[2019-07-17] MEDS: PERCOCET 5MG/325MG TAB PO PRN (03:36)
[2019-07-17 06:00] VITALS: BP 157/59
[2019-07-17 06:52] LABS: HEMATOCRIT 27.5 % (36.0-47.0); HEMOGLOBIN 8.7 g/dl (12.0-15.5); MEAN CORPUSCULAR HEMOGLOBIN 27.4 pg (27.0-33.0); MEAN CORPUSCULAR HGB CONC 31.6 g/dl (32.0-36.5); MEAN CORPUSCULAR VOLUME 86.8 fl (80.0-96.0); PLATELET COUNT, AUTOMATED 280 10^3/uL (150-450); RED BLOOD COUNT 3.17 10^6/uL (4.00-5.40); WHITE BLOOD COUNT 12.5 10^3/uL (4.0-10.0)
[2019-07-17 07:16] LABS: ALBUMIN 2.2 GM/DL (3.2-5.2); ALT/SGPT 34 U/L (12-78); BILIRUBIN,TOTAL 0.8 MG/DL (0.2-1.0); BLOOD UREA NITROGEN 11 MG/DL (7-18); CARBON DIOXIDE LEVEL 29 MEQ/L (21-32); CHLORIDE LEVEL 108 MEQ/L (98-107); CREATININE FOR GFR 0.42 MG/DL (0.55-1.30); GLOMERULAR FILTRATION RATE > 60.0 (>32); GLUCOSE, FASTING 114 MG/DL (70-100); POTASSIUM SERUM 4.3 MEQ/L (3.5-5.1); SODIUM LEVEL 141 MEQ/L (136-145); TOTAL PROTEIN 5.4 GM/DL (6.4-8.2)
[2019-07-17] MEDS: HumaLOG INSULIN (NovoLOG) PER UNIT SC SCH ×4 (07:30→21:00)
[2019-07-17] MEDS: OCUVITE 1 TAB PO SCH ×2 (08:31→20:49)
[2019-07-17] MEDS: MOM 30ML SUSPENSION UDC PO SCH (08:31)
[2019-07-17] MEDS: MIRALAX *UNIT DOSE* 17GM PACKET PO SCH (08:31)
[2019-07-17] MEDS: LISINOPRIL *2.5 MG* TAB PO SCH (08:35)
[2019-07-17 11:21] VITALS: O2SAT 97
[2019-07-17] MEDS: ACETAMINOPHEN TAB 650MG DOSE (2X325MG) PO PRN ×2 (13:50→20:49)
[2019-07-17 14:00] VITALS: BP 132/45
[2019-07-17] MEDS: RIVAROXABAN 10 MG TAB (XARELTO) PO SCH (18:35)
[2019-07-17 19:54] VITALS: BP 117/46
[2019-07-17 20:00] VITALS: O2SAT 96
[2019-07-18] MEDS: ACETAMINOPHEN TAB 650MG DOSE (2X325MG) PO PRN (03:15)
[2019-07-18 06:09] VITALS: BP 110/47
[2019-07-18] MEDS ORDERED: XARE10TA PO (06:28)
[2019-07-18 06:41] LABS: HEMATOCRIT 26.8 % (36.0-47.0); HEMOGLOBIN 8.4 g/dl (12.0-15.5); MEAN CORPUSCULAR HEMOGLOBIN 27.7 pg (27.0-33.0); MEAN CORPUSCULAR HGB CONC 31.3 g/dl (32.0-36.5); MEAN CORPUSCULAR VOLUME 88.4 fl (80.0-96.0); PLATELET COUNT, AUTOMATED 269 10^3/uL (150-450); RED BLOOD COUNT 3.03 10^6/uL (4.00-5.40); WHITE BLOOD COUNT 10.4 10^3/uL (4.0-10.0)
[2019-07-18 07:09] LABS: ALBUMIN 2.2 GM/DL (3.2-5.2); ALT/SGPT 27 U/L (12-78); BILIRUBIN,TOTAL 0.6 MG/DL (0.2-1.0); BLOOD UREA NITROGEN 9 MG/DL (7-18); CALCIUM LEVEL 8.1 MG/DL (8.8-10.2); CARBON DIOXIDE LEVEL 31 MEQ/L (21-32); CHLORIDE LEVEL 109 MEQ/L (98-107); CREATININE FOR GFR 0.41 MG/DL (0.55-1.30); GLOMERULAR FILTRATION RATE > 60.0 (>32); GLUCOSE, FASTING 106 MG/DL (70-100); POTASSIUM SERUM 4.4 MEQ/L (3.5-5.1); SODIUM LEVEL 143 MEQ/L (136-145); TOTAL PROTEIN 5.2 GM/DL (6.4-8.2)
[2019-07-18] MEDS: HumaLOG INSULIN (NovoLOG) PER UNIT SC SCH (07:30)
[2019-07-18] MEDS: MOM 30ML SUSPENSION UDC PO SCH (09:00)
[2019-07-18] MEDS: MIRALAX *UNIT DOSE* 17GM PACKET PO SCH (09:00)
[2019-07-18 09:14] VITALS: BP 142/68
[2019-07-18] MEDS: OCUVITE 1 TAB PO SCH (09:14)
[2019-07-18] MEDS: LISINOPRIL *2.5 MG* TAB PO SCH (09:14)
[2019-07-18] MEDS: PERCOCET 5MG/325MG TAB PO PRN (10:15)
--- NOTE | 2019-07-18 10:46 | DSES ---
DATE OF ADMISSION: 07/12/2019 DATE OF DISCHARGE: 07/18/2019 DISCHARGE DIAGNOSIS: Loosened left total hip arthroplasty status post left total hip arthroplasty revision. HISTORY: This is an 79-year-old female status post left total hip arthroplasty, who developed progressively worsening pain. It was discovered the prosthesis was loose. She failed to improve with conservative treatment. She elected for surgery for her continued symptoms. PROCEDURE PERFORMED: Left total hip arthroplasty revision. HOSPITAL COURSE: The patient was admitted on the day of surgery and underwent left total hip arthroplasty revision with one complication. There was a longitudinal split of the proximal femur during placement of the stem requiring two cables. Otherwise, no further complications. Her hospital course was without complications. She was up with physical therapy per their protocol and her pain was controlled. On the day of discharge the patient was doing well. She was weightbearing as tolerated to her left lower extremity using her walker. She will resume preoperative medications and diet. She will use oral medications for pain control. Also she will use Xarelto for 12 days postoperatively and thromboembolic deterrent stockings (TEDS) for 30 days postoperatively both for deep venous thrombosis (DVT) prophylaxis. The patient is leaving for [place] upon discharge and will followup in her home state. For further details please see the medical record.
== END 2019-07-18 12:10 | DRG 467 ==
LOC: M OR 05:32 → M MS5PR 13:30
PROVIDERS: ADMIT Orthopaedic Surgery; ATTEND Orthopaedic Surgery
PROC: 0SRB0J9 Replacement of Left Hip Joint with Synthetic Substitute, Cemented, Open Approach (ICD-10-PCS; 2019-07-12)
PROC: 0SPB0JZ Removal of Synthetic Substitute from Left Hip Joint, Open Approach (ICD-10-PCS; principal; 2019-07-12 07:30)
DX: T84.031A Mechanical loosening of internal left hip prosthetic joint, initial encounter (principal); D62 Acute posthemorrhagic anemia; Y83.1 Surgical operation with implant of artificial internal device as the cause of abnormal reaction of the patient, or of later complication, without mention of misadventure at the time of the procedure; E11.9 Type 2 diabetes mellitus without complications; I10 Essential (primary) hypertension; T84.061A Wear of articular bearing surface of internal prosthetic left hip joint, initial encounter; E78.5 Hyperlipidemia, unspecified; H35.30 Unspecified macular degeneration; F32.9 Major depressive disorder, single episode, unspecified; Z96.643 Presence of artificial hip joint, bilateral; Z87.891 Personal history of nicotine dependence; Z88.1 Allergy status to other antibiotic agents; Z88.8 Allergy status to other drugs, medicaments and biological substances; Z91.040 Latex allergy status; Z79.84 Long term (current) use of oral hypoglycemic drugs; Z79.899 Other long term (current) drug therapy

== ENCOUNTER → 2019-12-08 | Outpatient (CLI) | payer MEDICARE ==
[~2019-12-08] MED LIST changes: -LISI-1046 PO; +LISI2.5T2 PO; +PERC5TAB12 PO; +XARE10TA PO
[2019-12-08 16:38] LABS: BASO % 0.3 % (0.0-1.0); EOS # 0.4 10^3/uL (0.0-0.5); EOS % 3.1 % (0.0-3.0); HEMATOCRIT 41.5 % (36.0-47.0); HEMOGLOBIN 12.9 g/dl (12.0-15.5); LYMPH # 2.4 10^3/uL (1.5-5.0); LYMPH % 20.5 % (24.0-44.0); MEAN CORPUSCULAR HEMOGLOBIN 25.9 pg (27.0-33.0); MEAN CORPUSCULAR HGB CONC 31.1 g/dl (32.0-36.5); MEAN CORPUSCULAR VOLUME 83.2 fl (80.0-96.0); MONO # 0.9 10^3/uL (0.0-0.8); NEUTROPHILS # 7.9 10^3/uL (1.5-8.5); NEUTROPHILS % 67.8 % (36.0-66.0); RED BLOOD COUNT 4.99 10^6/uL (4.00-5.40); WHITE BLOOD COUNT 11.6 10^3/uL (4.0-10.0)
[2019-12-08 16:43] LABS: ALT/SGPT 17 U/L (12-78); BILIRUBIN,TOTAL 0.8 MG/DL (0.2-1.0); BLOOD UREA NITROGEN 12 MG/DL (7-18); CALCIUM LEVEL 9.5 MG/DL (8.8-10.2); CARBON DIOXIDE LEVEL 29 MEQ/L (21-32); CHLORIDE LEVEL 103 MEQ/L (98-107); CREATININE FOR GFR 0.67 MG/DL (0.55-1.30); FOLATE 19.6 NG/ML; GLOMERULAR FILTRATION RATE > 60.0 (>32); GLUCOSE, FASTING 87 MG/DL (70-100); RHEUMATOID FACTOR QUANT < 10.0 IU/ML (<15.0); SODIUM LEVEL 143 MEQ/L (136-145); TOTAL PROTEIN 7.1 GM/DL (6.4-8.2); VITAMIN B12 LEVEL 334 PG/ML
[2019-12-08 18:05] LABS: ERYTHROCYTE SEDIMENTATION RATE 15 mm/hr (0-30)
[2020-02-06 14:43] LABS: ACETYLCHOLINE RCPTOR BINDING A SEE SEPARATE REPORT; ACETYLCHOLINE RCPTOR BLOCK AB SEE SEPARATE REPORT; ACETYLCHOLINE RCPTOR MODULATIN SEE SEPARATE REPORT; ANTI DS-DNA AB SEE SEPARATE REPROT; ANTINUCLEAR ANTIBODIES DIRECT SEE SEPARATE REPORT; VITAMIN B1 LEVEL WHOLE BLOOD SEE SEPARATE REPORT; VITAMIN B6,PYRIDOXAL PHOSPHATE SEE SEPARATE REPORT; VITAMIN E(GAMMA TOCOPHEROL) SEE SEPARATE REPORT
[2020-02-06 14:48] LABS: VITAMIN E(ALPHA TOCOPHEROL) SEE SEPARATE REPORT
== END ==
LOC: M WUC 13:25
PROVIDERS: ATTEND Psychiatry & Neurology Neurology
DX: R47.81 Slurred speech (principal); R53.1 Weakness

== ENCOUNTER → 2019-12-12 | Outpatient (CLI) | payer MEDICARE ==
[~2019-12-12] MED LIST changes: +E-Z-GAS II EFFERVESCENT PACKET (SODIUM BICARB./CITRIC ACID/SIMETHICONE) As Ordered ONE; +E-Z-HD 98% w/w 340GM SUSP BTL As Ordered ONE; +E-Z-PAQUE 96% w/w SUSP 176GM BTL As Ordered ONE
--- NOTE | 2019-12-12 15:28 | REP ---
Examination Requested: Esophagram Barium Swallow Reason For Exam/Comment: Trouble swallowing Esophagram: The procedure was performed ROBERT Duke, under the direct supervision of Dr. Pollack. The images were reviewed with Dr. Pollack. A single PA chest x-ray is submitted as a dump grounds checker film. The superior mediastinal structures are midline. The heart size is within normal limits. The lungs are clear. Liquid barium was given in the erect position in order to perform the study. Oral and pharyngeal stages of the examination demonstrated laryngeal penetration and aspiration with a cough response. Esophageal transport is is delayed with no evidence of esophagitis or stricture. However tertiary contractions were visualized. For safety considers the exam was stopped. Evaluation for hiatal hernia or gastroesophageal reflux was not able to be done. Impression: 1. Aspiration. 2. Presbyesophagus. 0.3 minutes of fluoroscopy time was utilized for this procedure. Some fluoroscopic images are performed with last image hold technology. These images require no additional radiation. Reviewed by ROBERT Phillips 12/12/2019 02:26 P Electronically Signed by Girish Pollack MD 12/12/2019 03:19 P
== END ==
LOC: M RAD 08:48
PROVIDERS: ATTEND Psychiatry & Neurology Neurology
DX: K22.8 Other specified diseases of esophagus (principal); R13.10 Dysphagia, unspecified